=== PATIENT | female | born 1990 | race Caucasian/White ===

== ENCOUNTER → 2020-10-08 | Outpatient (CLI) | payer OTHER ==
[~2020-10-08] MED LIST: ASPIRIN CHEWABL81 MG PO
== END ==
LOC: MRI 10-04 15:00
DX: R22.42 Localized swelling, mass and lump, left lower limb (principal); M89.8X6 Other specified disorders of bone, lower leg
CPT/HCPCS: 73723; A9577

== ENCOUNTER → 2021-04-21 | Outpatient (CLI) | payer OTHER | LOC: KOH-I 09:30 | DX: M24.021 Loose body in right elbow (principal); M25.521 Pain in right elbow | CPT/HCPCS: 73200 ==

== ENCOUNTER → 2022-03-26 | Outpatient (CLI) | payer OTHER | LOC: HEART 5 10:23 | DX: R07.89 Other chest pain (principal); R06.02 Shortness of breath | CPT/HCPCS: 93306 ==